=== PATIENT | male | born 1970 | race Caucasian/White ===

== ENCOUNTER 2017-03-18 08:32 | Emergency (ER) | payer SELFPAY ==
[~2017-03-18] VITALS: Ht 182.9 cm; Wt 130.0 kg
[2017-03-18 08:35] VITALS: BP 223/107; PULSE 90; RESP 16; TEMP 97.8; O2SAT 97
[2017-03-18] MEDS ORDERED: CLIN1CAP6 PO (08:55)
[2017-03-18] MEDS ORDERED: LISI10TA3 PO (08:55)
--- NOTE | 2017-03-18 08:55 | PD ---
HPI Chief Complaint: Pain: Acute or Chronic Time Seen by Provider: 08:40 Travel History International Travel<30 days: No Contact w/Intl Traveler<30days: No Traveled to known affect area: No History of Present Illness HPI 46-year-old male presents with left big toe pain after he tried to remove an ingrown toenail. He states that he hasn't been running any fevers or denies other complaints other than being off of his blood pressure medication for 5 months [place] cannot afford it does not have a primary care physician. He states that he is working on possibly going to the [facility] for follow-up. He states he had blood work 2 months ago when he had an abdominal pain episode that was normal. Quality pain is sharp. Severity is moderate. Pain is worse with movement. He denies other modifying factors. Duration is couple of days in regards to his toe. He states he used to be on a medication that was 20 mg then lowered to 10 mg that he's not sure of the exact medication but it was free at [facility] Past Medical History Diminished Hearing: No Hypertension: Yes Tetanus Vaccination: < 5 Years Influenza Vaccination: No Past Surgical History Abdominal Surgery: Yes Appendectomy: Yes Social History Alcohol Use: No Tobacco Use: No Substance Use: No Allergies-Medications (Allergen,Severity, Reaction): Coded Allergies: No Known Allergies (Unverified , 03/18/17) Reported Meds & Prescriptions Reported Meds & Active Scripts Active Clindamycin (Clindamycin HCl) 300 Mg Cap 300 Mg PO TID 7 Days Lisinopril 10 Mg Tab 10 Mg PO DAILY Review of Systems Except as stated in HPI: all other systems reviewed are Neg Physical Exam Narrative GENERAL: Well-nourished, well-developed patient. SKIN: To left hallux at the base of the nail and along the edge there is erythema with warmth without associated induration, patient has removed the portion of his toenail where there was an ingrown component already HEAD: Normocephalic and atraumatic. EYES: No injection or drainage. ENT: No nasal drainage noted. NECK: Supple, trachea midline. CARDIOVASCULAR: Regular rate and rhythm RESPIRATORY: No increased effort. No accessory muscle use. EXTREMITIES: Pain with palpation of left hallux without other joint involvement or progression up his leg or foot, neurovascularly intact with good cap refill NEUROLOGICAL: Awake and alert. Motor and sensory grossly within normal limits. Normal speech. Data Data Last Documented VS Vital Signs Date Time Temp Pulse Resp B/P (MAP) Pulse Ox O2 Delivery O2 Flow Rate FiO2 03/18/17 09:15 97.8 81 16 198/96 (130) 99 03/18/17 08:35 Room Air MDM Medical Decision Making Medical Screen Exam Complete: Yes Emergency Medical Condition: Yes Medical Record Reviewed: Yes (past history confirmed) Differential Diagnosis Hypertensive urgency, medication refill, cellulitis, paronychia, ingrown toenail Narrative Course Patient with recent normal blood work per patient. On recheck of his pressure it has improved some on its own and is likely elevated to being off of his blood pressure medication and secondary to pain. Patient agrees to refill of likely lisinopril at 10 mg and will be provided antibiotic prescription for his toe. He agrees to continued warm compresses and outpatient follow-up. There is no active abscess and patient already removed ingrown nail, case management talked with patient to facilitate outpatient follow-up and prescription assistance Diagnosis Primary Impression: Cellulitis, toe Qualified Codes: L03.039 - Cellulitis of unspecified toe Additional Impression: Hypertension Qualified Codes: I10 - Essential (primary) hypertension Patient Instructions: General Instructions Additional Instructions: return as needed, follow with podiatry this week, keep blood pressure log Med/Other Pt SpecificInfo: Prescription(s) given Scripts Clindamycin (Clindamycin) 300 Mg Cap 300 MG PO TID for Infection for 7 Days, CAP 0 Refills Prov: Karyna Camejo MD 03/18/17 Lisinopril (Lisinopril) 10 Mg Tab 10 MG PO DAILY, #30 TAB 0 Refills Prov: Karyna Camejo MD 03/18/17 Disposition: 01 DISCHARGE HOME Condition: Stable Karyna Camejo MD Mar 18, 2017 08:55
[2017-03-18 09:15] VITALS: BP 198/96; TEMP 97.8
== END 2017-03-18 09:21 | disposition home or self-care (01) ==
LOC: NEPC 08:32
DX: L03.032 Cellulitis of left toe (principal); I10 Essential (primary) hypertension
CPT/HCPCS: 99284